=== PATIENT | female | born 2005 | race African-American/Black ===

== ENCOUNTER 2024-03-08 17:09 | Emergency (ER) | payer MEDICAID ==
[~2024-03-08] VITALS: Ht 157.5 cm; Wt 49.0 kg
[2024-03-08 17:17] VITALS: BP 125/79; TEMP 98.6; O2SAT 100
[2024-03-08 17:18] VITALS: PULSE 82; RESP 16; O2SAT 99
[2024-03-08] MEDS ORDERED: FLUC150T46 MT (19:28)
[2024-03-08] MEDS ORDERED: METR-167 MT (19:28)
== END 2024-03-08 19:54 | disposition home or self-care (01) ==
LOC: ER 17:09
DX: N89.8 Other specified noninflammatory disorders of vagina (principal); R07.89 Other chest pain; R10.9 Unspecified abdominal pain; L30.9 Dermatitis, unspecified
CPT/HCPCS: 71045; 93005; 99283

== ENCOUNTER 2024-03-12 20:19 | Emergency (ER) | payer MEDICAID ==
[~2024-03-12] VITALS: Ht 157.5 cm; Wt 50.3 kg
[~2024-03-12 20:19] MED LIST: FLUC150T46 MT; METR-167 MT
[2024-03-12 20:39] VITALS: O2SAT 100
[2024-03-13 00:48] VITALS: BP 125/83; PULSE 77; RESP 19; TEMP 36.55848; O2SAT 97
== END 2024-03-13 07:43 | disposition home or self-care (01) ==
LOC: ER 20:19
DX: K62.89 Other specified diseases of anus and rectum (principal); R21 Rash and other nonspecific skin eruption
CPT/HCPCS: 99281